=== PATIENT | male | born 1995 | race Caucasian/White ===

== ENCOUNTER 2017-08-06 02:07 | Emergency (ER) | payer OTHER ==
[2017-08-06] MEDS: HYDROmorphone HCL 1 MG/ML SYRINGE (J1170) IV ×3 (02:35→03:25)
[2017-08-06] MEDS: LR 1,000 ML IV (02:35)
[2017-08-06 02:38] LABS: BASO % 0.3 % (0.0-1.0); EOS % 0.3 % (0.0-3.0); HEMOGLOBIN 17.3 g/dl (14.0-18.0); IMMATURE GRANULOCYTE % 0.4 % (0-3.0); LYMPH # 2.2 10^3/uL (1.5-6.5); LYMPH % 20.2 % (24.0-44.0); MEAN CORPUSCULAR HEMOGLOBIN 33.9 pg (27.0-33.0); MEAN CORPUSCULAR VOLUME 93.9 fl (80.0-96.0); MONO % 9.2 % (0.0-5.0); NEUTROPHILS # 7.5 10^3/uL (1.8-7.7); NEUTROPHILS % 69.6 % (36.0-66.0); PLATELET COUNT, AUTOMATED 232 10^3/uL (150-450); RED BLOOD COUNT 5.11 10^6/uL (4.30-6.10); RED CELL DISTRIBUTION WIDTH 12.1 % (11.5-14.5); WHITE BLOOD COUNT 10.8 10^3/uL (4.0-10.0)
[2017-08-06 02:57] LABS: ANION GAP 12 MEQ/L (8-16); BLOOD UREA NITROGEN 14 MG/DL (7-18); CALCIUM LEVEL 8.5 MG/DL (8.5-10.1); CARBON DIOXIDE LEVEL 20 MEQ/L (21-32); CHLORIDE LEVEL 112 MEQ/L (98-107); CPK CREATINE PHOSPHOKINASE 430 U/L (39-308); CREATININE FOR GFR 0.89 MG/DL (0.70-1.30); GLOMERULAR FILTRATION RATE > 60.0 (>60); GLUCOSE, FASTING 104 MG/DL (70-100); SODIUM LEVEL 144 MEQ/L (136-145)
[2017-08-06 03:04] LABS: ETHYL ALCOHOL (ETHANOL) 0.164 % (0.000-0.010)
== END 2017-08-06 04:18 | disposition short-term general hospital (02) ==
LOC: M ED 02:07
DX: T20.20XA Burn of second degree of head, face, and neck, unspecified site, initial encounter (principal); T22.211A Burn of second degree of right forearm, initial encounter; T22.212A Burn of second degree of left forearm, initial encounter; T23.201A Burn of second degree of right hand, unspecified site, initial encounter; T23.202A Burn of second degree of left hand, unspecified site, initial encounter; X03.0XXA Exposure to flames in controlled fire, not in building or structure, initial encounter; Y92.017 Garden or yard in single-family (private) house as the place of occurrence of the external cause; F17.210 Nicotine dependence, cigarettes, uncomplicated
CPT/HCPCS: J1170